=== PATIENT | female | born 1960 ===

== ENCOUNTER 2018-06-25 12:30 | Emergency (ER) | payer OTHER ==
[~2018-06-25] VITALS: Ht 167.6 cm; Wt 102.1 kg
[~2018-06-25 12:30] MED LIST: ACYCLOVIR800 MG PO; ALTACE10 MG; ANTIVERT25 M1; ANTIVERT25 M1 PO; ANTIVERT50 MG PO; COZAAR50 MG; EC-NAPROSYN500 MG; FIORICET 50-301 EACH PO; FIORICET TABLET1 TAB; FORADIL12 MCG; HYDROCHLOROTHIA50 MG; MOBIC15 MG PO; NEURONTIN300 MG PO; NORFLEX100MG PO; PEPCID40 MG PO; QVAR7.3 G1; RYBIX ODT50 MG PO; SINGULAIR10 MG; SINGULAIR10 MG PO; TOPAMAX15 MG PO; VITAMIN D400 UNI2
== END 2018-06-25 17:36 | disposition home or self-care (01) ==
LOC: ER 12:30
DX: R07.89 Other chest pain (principal); R06.02 Shortness of breath; F41.8 Other specified anxiety disorders

== ENCOUNTER 2018-12-11 09:50 | Emergency (ER) | payer OTHER ==
[~2018-12-11] VITALS: Ht 165.1 cm; Wt 101.2 kg
== END 2018-12-11 13:59 | disposition home or self-care (01) ==
LOC: ER 09:50
DX: R19.7 Diarrhea, unspecified (principal)

== ENCOUNTER 2020-11-11 18:30 | Emergency (ER) | payer OTHER ==
[~2020-11-11] VITALS: Ht 167.6 cm; Wt 101.6 kg
[~2020-11-11 18:30] MED LIST changes: +CIPRO500 MG PO; +LEVSIN/SL0.125 MG SL; +SYMBICORT 16010.2 GM; +[UNRECOGNIZED DRUG - OTHER]
[2020-11-11] MEDS ORDERED: PROTONIX20 MG (18:48)
[2020-11-11] MEDS ORDERED: KETO10TA2 PO (21:01)
[2020-11-11] MEDS ORDERED: ORPHENADRINE C100 MG PO (21:01)
== END 2020-11-11 21:10 ==
LOC: ER 18:30
DX: M54.5 Low back pain (principal)

== ENCOUNTER 2021-01-13 09:22 | Emergency (ER) | payer OTHER ==
[~2021-01-13] VITALS: Ht 167.6 cm; Wt 101.2 kg
[~2021-01-13 09:22] MED LIST changes: +KETO10TA2 PO; +ORPHENADRINE C100 MG PO; +PROTONIX20 MG
== END 2021-01-13 11:15 | disposition home or self-care (01) ==
LOC: ER 09:22
DX: M54.5 Low back pain (principal)

== ENCOUNTER 2021-02-19 09:51 | Emergency (ER) | payer OTHER ==
[~2021-02-19] VITALS: Ht 167.6 cm; Wt 101.2 kg
== END 2021-02-19 19:34 | disposition home or self-care (01) ==
LOC: ER 09:51
DX: U07.1 COVID-19 (principal); J12.82 Pneumonia due to coronavirus disease 2019; B34.9 Viral infection, unspecified; R06.02 Shortness of breath; R05 Cough

== ENCOUNTER 2023-06-08 08:15 | Outpatient (CLI) | payer OTHER | END 2023-06-08 08:20 | disposition home or self-care (01) | LOC: RX STUDY 08:15 | PROVIDERS: ATTEND Internal Medicine | DX: R13.14 Dysphagia, pharyngoesophageal phase (principal) ==